=== PATIENT | female | born 1935 | race Caucasian/White ===

== ENCOUNTER → 2016-11-06 | Outpatient (CLI) | payer MEDICARE, BC ==
[~2016-11-06] MED LIST: ANIMAL SHAPES1 EAC2; ASPIRIN EC81 M1; ASPIRIN81 M2 PO; AVAPRO300 M1; AVAPRO300 M1 PO; B6100 MG; CENTRUM PO; CERTAGEN PO; CIPRO PO; CRESTOR PO; DETROL LA PO; EYE VITAMIN OP; EYE VITAMIN-MI1 EACH PO; FENOGLIDE40 MG; FISH OIL 1,2001 EAC2 PO; FISH OIL300 MG; HCTZ; HYDROCODONE-APAP PO; IBUPROFEN800 MG PO; KEFLEX500 MG PO; LASIX20 MG PO; LEVOTHROID75 MCG PO; LEVOTHYROXINE75 MC1; LEVOTHYROXINE75 MCG PO; LIPITOR; LIPITOR20 MG PO; LISINOPRIL-HCTZ1 T16 PO; MIRAPEX1 MG PO; MULTI VITAMIN1 EACH PO; MULTI-DAY VITAM1 TAB PO; NEURONTIN; NORCO1 TAB 10/3 PO; NORVASC PO; OCUVITE TABLET1 TAB PO; OMEPRAZOLE20 M2; OMEPRAZOLE40 M1 PO; PANTOPRAZOLE SO40 MG PO; PATIENT'S PHARMACY; PERCOCET 5/321 UDTAB PO; PREMARIN PO; PREMARIN0.625 MG PO; PROTONIX PO; REGLAN PO; SIMVASTATIN40 MG PO; SYNTHROID PO; TIZANIDINE HCL4 M1 PO; TRAMADOL HCL50 M1 PO; TRAMADOL HCL50 M2 PO; TRICOR PO; TRIGLIDE160 M1 PO; VICODIN PO; ZANAFLEX4 M1 PO; ZESTORETIC 20/21 TAB PO; [UNRECOGNIZED DRUG - OTHER]
[2016-11-06 09:57] LABS: URINE APPEARANCE CLOUDY; URINE BILIRUBIN NEG (NEG); URINE BLOOD NEG (NEG); URINE COLOR YELLOW; URINE GLUCOSE NEG (NEG); URINE KETONE NEG (NEG); URINE LEUKOCYTE ESTERASE 1+ (NEG); URINE NITRATE NEG (NEG); URINE PH 5.5 (5-8); URINE PROTEIN NEG (NEG); URINE SPECIFIC GRAVITY 1.026 (1.003-1.035); URINE UROBILINOGEN 0.2 MG/DL (NEG)
[2016-11-06 10:01] LABS: CULTURE INDICATED? YES; URINE BACTERIA AUWI NEG (NEGATIVE); URINE SQUAMOUS EPITHELIAL CELL MOD /[HPF]
[2016-11-06 10:02] LABS: HEMATOCRIT 38.1 % (35.0-45.0); HEMOGLOBIN 12.5 gm/dL (12.0-16.0); MEAN CELL VOLUME 87.9 FL (83-96); MEAN CORPUSCULAR HEMOGLOBIN 28.9 PG (28-34); MEAN CORPUSCULAR HGB CONC 32.8 g/dL (30-36); MEAN PLATELET VOLUME 7.9 FL (6.5-11.5); RED BLOOD COUNT 4.33 X10e (3.90-5.30); RED CELL DISTRIBUTION WIDTH 14.8 % (11.0-15.5); WHITE BLOOD COUNT 4.9 X10e3 (4.0-10.5)
[2016-11-06 10:28] LABS: BUN/CREATININE RATIO 36.66; CALCIUM SERUM 9.2 mg/dL (8.4-10.2); CREATININE SERUM 0.6 mg/dL (0.6-1.4); GLOM FILT RATE Estimated 86.7 mL/min (>60); POTASSIUM 4.3 mmol/L (3.5-5.1)
[2016-11-06 10:35] LABS: URINE SOURCE CLEAN CATCH
[2016-11-06 10:38] LABS: URBCS1 AUWI 0-2 /[HPF] (0-2)
[2016-11-06 10:39] LABS: U HYALINE CASTS AUWI 0-2 /[LPF]; URINE MUCUS PRESENT
[2016-11-06 10:40] LABS: URINE YEAST PRESENT
== END | disposition home or self-care (01) ==
LOC: CAMB 09:24
PROVIDERS: Orthopaedic Surgery
DX: Z01.812 Encounter for preprocedural laboratory examination (principal); T81.89XA Other complications of procedures, not elsewhere classified, initial encounter
CPT/HCPCS: 36415; 80048; 81003; 85027; 87070; 87086

== ENCOUNTER → 2016-11-08 | Outpatient (CLI) | payer MEDICARE, BC ==
--- NOTE | ~2016-11-08 | MY29 ---
[facility] A Service of [facility] RADIOLOGY TEXT RESULTS PATIENT: NIDA MATHUR LOCATION: [facility] : 37 UNIT #: [id number] AGE: [address]: Nik Alexander MD SEX: F ORDER DR: [id number] [facility] [address] [place], [place] [address] [id number] O MR#: [id number] Acc #: [id number] NAME: NIDA MATHUR : 1935 SEX: F STUDY DATE/TIME: 11/08/2016 10:44 UNIT: [facility] ROOM: STUDY DESCRIPTION: MY LUIS SCREENING W/ CAD BILAT Attending Physician: Nik Alexander M.D. Referring Physician: Nik Alexander M.D. Ordering Physician: Nik Alexander M.D. Primary Care Physician: Nik Alexander M.D. MEDICAL IMAGING REPORT This report is preliminary unless electronic signature is present EXAM Bilateral digital screening mammogram with CAD 11/08/2016. INDICATIONS 81-year-old female for routine screening. No reported problems and no personal or family history of breast cancer. History of benign biopsy on the right. TECHNIQUE CC and MLO views of the breasts were obtained and reviewed with an FDA-approved CAD device COMPARISON 11/04/2015, 10/11/2014, 04/29/2012. FINDINGS Scar marker present on the right. Breast parenchyma is composed of scattered fibroglandular densities. Extensive secretory type calcifications present bilaterally. There is no new dominant nodule or mass in either breast. No new suspicious cluster of microcalcifications. IMPRESSION Benign screening mammogram; 1-year follow-up recommended. Patients over the age of 40 are entered into a reminder system with target due date for the next mammogram. A result letter will also be sent to the patient. BIRADS: 2 Benign finding. Dictated by... Eduardo Mann M.D. [facility] A Service of [facility] RADIOLOGY TEXT RESULTS PATIENT: NIDA MATHUR LOCATION: [facility] : 37 UNIT #: [id number] AGE: [address]: Nik Alexander MD SEX: F ORDER DR: THIS IS AN ELECTRONICALLY VERIFIED REPORT Eduardo Mann M.D. at 11/08/2016 5:24 PM Rylan TD: 11/08/2016 15:00 JOB #: [id number] MEDICAL IMAGING REPORT Page 1 of 1 COPY
== END | disposition home or self-care (01) ==
LOC: CWCC 10:21
DX: Z12.31 Encounter for screening mammogram for malignant neoplasm of breast (principal); Z91.89 Other specified personal risk factors, not elsewhere classified; Z98.890 Other specified postprocedural states
CPT/HCPCS: G0202

== ENCOUNTER 2016-11-14 05:19 | Inpatient (IN) | payer MEDICARE, BC ==
[~2016-11-14] VITALS: Ht 165.1 cm; Wt 70.0 kg
--- NOTE | ~2016-11-14 | DS ---
Unit #: [id number] #: [id number] Patient: NIDA MATHUR [id number] [address] [place], [place] [address] [id number] I MR#: [id number] NAME: NIDA MATHUR. ROOM: [facility] Age: 81 Sex: F Admission Date: 11/14/2016 : 1935 Discharge Date: 11/15/2016 Attending Physician: Zachariah Ramirez M.D. Primary Care Physician: Nik Alexander M.D. DISCHARGE SUMMARY ADMITTING DIAGNOSIS Failed left shoulder rotator cuff repair. DISCHARGE DIAGNOSIS Failed left shoulder rotator cuff repair, status post left reverse shoulder arthroplasty. SECONDARY DIAGNOSES 1. Cardiomegaly. 2. Lumbar degenerative disk disease. 3. Diverticulitis. 4. Gastroesophageal reflux disease. 5. Hypertension. 6. Hyperlipidemia. 7. Peripheral neuropathy. 8. Restless legs syndrome. PROCEDURE PERFORMED On 11/14/2016, the patient underwent the left reverse shoulder arthroplasty. Please see operative report for further details. BRIEF HISTORY Ms. Mathur is a 81-year-old female who was referred to our office by Dr. Fuentes for her left shoulder. She underwent a previous left rotator cuff repair and now has failed rotator cuff repair with pseudoparalysis. She was experiencing left shoulder pain on a daily basis and has difficulty performing any of her activities of daily living due to limited range of motion of her left shoulder. Dr. Ramirez discussed treatment options with her and recommended a left reverse shoulder arthroplasty. The risks, benefits, and alternatives were discussed with the patient and she elected to proceed with surgery on 11/14/2016. HOSPITAL COURSE The patient was transferred to the orthopedic unit after surgery for postoperative care. The patient remained stable on the day of surgery. Postoperative films of her left shoulder demonstrated she was status post left reverse shoulder arthroplasty, however, remained in correct anatomic alignment with no evidence of loosening or migration. On postoperative day #1, the patient remained stable. She was afebrile and her vital signs were stable. She is awake, alert, and oriented x3 and in no acute distress. Her left upper extremity incision was clean, dry, and intact with no surrounding erythema, warmth, or hematoma. She was Unit #: [id number] #: [id number] Patient: NIDA MATHUR neurovascularly intact in the median, ulnar, and radial nerves. She has normal sensation to light touch in all 5 digits. Her white blood cell count was 7.8 and hemoglobin was 11.3. She was placed on aspirin and an SCD for DVT prophylaxis. We will recommend physical therapy on pendulums as well as range of motion of the elbow, wrist, and hand. She remained nonweightbearing of left upper extremity and her sling with the exception of 2 to 3 times a day when she will perform her hand exercises. Her left shoulder dressing was changed in the room today. CONDITION ON DISCHARGE Stable. DISPOSITION The patient will be discharged home where she has her and all other family members to help with postoperative care. DISCHARGE MEDICATIONS 1. Mirapex 1 mg p.o. twice daily. 2. Lasix 20 mg p.o. every morning. 3. Lipitor 40 mg p.o. nightly. 4. Avapro 300 mg p.o. every morning. 5. Multivitamin 1 tablet p.o. daily. 6. Aspirin 81 mg p.o. daily. 7. Eye vitamin and mineral tablet 2 tablets p.o. daily. 8. Omeprazole 40 mg p.o. b.i.d. 9. Tizanidine 4 mg p.o. t.i.d. 10. Synthroid 75 mcg p.o. every morning. 11. Percocet 5/325 mg 1-2 tablets p.o. q.4 h. p.r.n. The patient was given prescription for Percocet on discharge to dispense 65 tablets. DISCHARGE INSTRUCTIONS The patient will be discharged home today. She will follow up with Dr. Ramirez in 2 weeks' time. She will remain nonweightbearing of the left upper extremity and in her sling. She may remove her sling 2-3 times a day to perform pendulums and range of motion of the elbow, wrist, and hand. She will perform daily dressing changes to the left upper extremity incision. She may shower, but she is not to get her incision wet. Dictated by... Meghan Gandhi APRN for Shankar Mills/martínez TD: 11/19/2016 11:01 JOB #: [id number] DISCHARGE SUMMARY Page 1 of 1 X MEGHAN GANDHI APRN DISCHARGE SUMMARY
--- NOTE | ~2016-11-14 | OR ---
Unit #: [id number] #: [id number] Patient: NIDA MATHUR [id number] [address] [address] [id number] I MR#: [id number] NAME: NIDA MATHUR. ROOM: [facility] Date of Procedure: 11/14/2016 Admission Date: 11/14/2016 Surgeon: Zachariah Ramirez M.D. : 1935 Attending Physician: Zachariah Ramirez M.D. Primary Care Physician: Nik Alexander M.D. OPERATIVE REPORT PREOPERATIVE DIAGNOSIS Failed left rotator cuff repair. POSTOPERATIVE DIAGNOSIS Failed left rotator cuff repair PROCEDURES PERFORMED 1. Left reverse shoulder arthroplasty. 2. Left shoulder biceps tenodesis. 3. Hardware removal, left shoulder. [employer] Melissa Arias APRN, ENTRY LEVEL MANAGEMENT. ANESTHESIA General with interscalene nerve block. IMPLANTS 1. DJO Surgical size 10 press-fit AltiVate stem with a 32 neutral humeral socket liner. 2. DJO Surgical P2 baseplate with a 32, -4 Glenosphere. ESTIMATED BLOOD LOSS 100 mL. COMPLICATIONS None apparent. SPECIMENS Humeral head to Pathology. DRAINS None. INDICATIONS FOR PROCEDURE Ms. 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 She is 81 years old. We discussed revision repair versus superior capsular reconstruction versus reverse shoulder arthroplasty. She was referred to our office in anticipation of a reverse shoulder arthroplasty. Following our discussion of surgical treatment options, she elected to proceed with a reverse shoulder replacement. Risks, benefits, and alternatives were reviewed and she Unit #: [id number] #: [id number] Patient: NIDA MATHUR elected to proceed. DESCRIPTION OF PROCEDURE The patient was identified in the preoperative holding area. The operative site was marked. Preoperative antibiotics were administered. A regional block was performed. The patient was brought to the operating room and placed supine on the operating table. A general anesthetic was induced. The patient was then positioned in the beach-chair position. The left upper extremity was prepped and draped in a sterile fashion. An incision was made over the anterior aspect of the shoulder. Dissection was carried down to the deltopectoral interval. The cephalic vein was identified and retracted medially with the pectoralis major muscle. The subdeltoid space was developed. Adhesions were removed to the subdeltoid fascia. Then, rotator cuff was inspected. There was a large full-thickness tear of the entirety of the supraspinatus and extending back into the infraspinatus. The subscapularis was intact. The tendon sheath in the long head of the biceps was opened. Within the sheath itself, there was noted to be proliferative tenosynovium. A biceps tenodesis was then performed to the superior border of the pectoralis major tendon with #2 FiberWire suture. The proximal biceps was then excised. The remnant of the anterior supraspinatus was then removed. The subscapularis was taken down in a direct subscapularis peel. The shoulder was then dislocated anteriorly. The articular cartilage was largely healthy in appearance. There were multiple sutures and suture anchors noted. These were removed. The extramedullary cutting guide was attached. A humeral head osteotomy was performed in 30 degrees of retroversion. The shoulder was then dislocated posteriorly and attention turned to glenoid exposure. We had easy glenoid exposure in this individual. The labrum was removed circumferentially. The central drill hole was drilled to desired depth. The reaming tap was inserted and achieved good purchase. We then reamed with a starter and small reamers to the desired depth. We then inserted the real baseplate, which achieved excellent purchase. We placed 4 peripheral locking screws. We then placed the real 32, -4 Glenosphere, followed by the setscrew. Attention was turned back to the humerus. The humerus was reamed with a freehand ball reaming technique. Any remaining suture anchors were removed. We removed numerous PEEK suture anchors from the humerus. We then reamed up to a size 10 reamer. The real implant was opened. Three drill holes were placed in the bicipital groove. FiberTape sutures were passed for suture passage. The real implant was inserted with the sutures looped around the stem. We then trialed and selecting a 32 neutral humeral socket liner. The real liner was opened and inserted. The shoulder was reduced. The sutures were passed through the subscapularis and subscapularis was repaired with 3 FiberTape sutures. The wound was then irrigated and closed in a layered fashion. A drain was not required. The wound was closed with 0 Vicryl, 2-0 Vicryl, and running Monocryl in the skin. Steri-Strips and sterile dressings were applied. The patient was placed in a shoulder immobilizer. DISPOSITION Stable to the recovery room. Dictated by... Unit #: [id number] #: [id number] Patient: NIDA MATHUR Shankar Mills/martínez TD: 11/15/2016 05:52 JOB #: [id number] OPERATIVE REPORT Page 1 of 1 X Zachariah Ramirez MD X PROCEDURE OPERATIVE NOTE
--- NOTE | ~2016-11-14 | CR229 ---
[facility] A Service of [facility] RADIOLOGY TEXT RESULTS PATIENT: NIDA MATHUR LOCATION: B 451-01 : 37 UNIT #: [id number] AGE: [address]: Zachariah Ramirez MD SEX: F ORDER DR: [id number] [facility] [address] [place], [place] [address] [id number] MR#: [id number] Acc #: [id number] NAME: NIDA MATHUR : 1935 SEX: F STUDY DATE/TIME: 11/14/2016 10:14 UNIT: [facility] ROOM: [facility] STUDY DESCRIPTION: CR Shoulder Min 2 View Lt Attending Physician: Zachariah Ramirez M.D. Ordering Physician: Zachariah Ramirez M.D. Primary Care Physician: Nik Alexander M.D. MEDICAL IMAGING REPORT This report is preliminary unless electronic signature is present EXAM Left shoulder 11/14 INDICATIONS Status post shoulder replacement today. Shoulder pain. FINDINGS 2 views of the left shoulder COMPARISON 12/07/2015 FINDINGS There has been interval shoulder arthroplasty. Hardware appears well-aligned. No complications are seen. IMPRESSION Satisfactory appearance of a new left shoulder arthroplasty. Dictated by... Master Garcia Jr., M.D. THIS IS AN ELECTRONICALLY VERIFIED REPORT Master Garcia Jr., M.D. at 11/15/2016 8:29 AM RLK/prasanna TD: 11/14/2016 18:47 JOB #: [id number] MEDICAL IMAGING REPORT Page 1 of 1 COPY
[~2016-11-14 05:19] MED LIST changes: -ASPIRIN81 M2 PO; -AVAPRO300 M1 PO; -EYE VITAMIN-MI1 EACH PO; -FISH OIL 1,2001 EAC2 PO; -IBUPROFEN800 MG PO; -LASIX20 MG PO; -LEVOTHYROXINE75 MCG PO; -LIPITOR20 MG PO; -MIRAPEX1 MG PO; -MULTI VITAMIN1 EACH PO; -OMEPRAZOLE40 M1 PO; -PERCOCET 5/321 UDTAB PO; -TIZANIDINE HCL4 M1 PO; -TRAMADOL HCL50 M1 PO
[2016-11-14 06:37] LABS: URINE APPEARANCE CLOUDY; URINE BILIRUBIN NEG (NEG); URINE BLOOD NEG (NEG); URINE COLOR DK YELLOW; URINE GLUCOSE NEG (NEG); URINE KETONE TRACE (NEG); URINE LEUKOCYTE ESTERASE 1+ (NEG); URINE NITRATE NEG (NEG); URINE PH 5.5 (5-8); URINE PROTEIN NEG (NEG)
[2016-11-14 06:39] LABS: URBCS1 AUWI 0-2 /[HPF] (0-2); URINE BACTERIA AUWI NEG (NEGATIVE); URINE SQUAMOUS EPITHELIAL CELL MANY /[HPF]
[2016-11-14 07:04] LABS: URINE MUCUS PRESENT
[2016-11-14] MEDS ORDERED: TIZANIDINE HCL4 M1 PO (10:00)
[2016-11-14] MEDS ORDERED: OMEPRAZOLE40 M1 PO (10:01)
[2016-11-14] MEDS ORDERED: AVAPRO300 M1 PO (10:01)
[2016-11-14] MEDS ORDERED: LASIX20 MG PO (10:02)
[2016-11-14] MEDS ORDERED: LIPITOR20 MG PO (10:06)
[2016-11-14] MEDS ORDERED: LEVOTHYROXINE75 MCG PO (10:06)
[2016-11-14] MEDS ORDERED: TRAMADOL HCL50 M1 PO (10:07)
[2016-11-14] MEDS ORDERED: MIRAPEX1 MG PO (10:08)
[2016-11-14] MEDS ORDERED: ASPIRIN81 M2 PO (10:09)
[2016-11-14] MEDS ORDERED: FISH OIL 1,2001 EAC2 PO (10:09)
[2016-11-14] MEDS ORDERED: IBUPROFEN800 MG PO (10:09)
[2016-11-14] MEDS ORDERED: MULTI VITAMIN1 EACH PO (10:09)
[2016-11-14] MEDS ORDERED: EYE VITAMIN-MI1 EACH PO (10:11)
[2016-11-15 03:05] LABS: HEMATOCRIT 34.2 % (35.0-45.0); HEMOGLOBIN 11.3 gm/dL (12.0-16.0); MEAN CELL VOLUME 87.6 FL (83-96); MEAN CORPUSCULAR HGB CONC 33.1 g/dL (30-36); RED BLOOD COUNT 3.9 X10e (3.90-5.30); WHITE BLOOD COUNT 7.8 X10e3 (4.0-10.5)
[2016-11-15] MEDS ORDERED: PERCOCET 5/321 UDTAB PO (08:52)
== END 2016-11-15 11:40 | disposition home or self-care (01) | DRG 483 ==
LOC: CSUR 05:19 → CPACUOF 07:00 → CSUR 07:30 → CPACUOF 09:53 → C4B 09:53 → CPACUOF 11:28 → C4B 11:28
PROVIDERS: Orthopaedic Surgery
PROC: 0RRK00Z Replacement of Left Shoulder Joint with Reverse Ball and Socket Synthetic Substitute, Open Approach (ICD-10-PCS; principal; 2016-11-14 07:30)
DX: M25.512 Pain in left shoulder (principal); K57.92 Diverticulitis of intestine, part unspecified, without perforation or abscess without bleeding; G62.9 Polyneuropathy, unspecified; Z98.890 Other specified postprocedural states; I10 Essential (primary) hypertension; R29.818 Other symptoms and signs involving the nervous system; I51.7 Cardiomegaly; M51.36 Other intervertebral disc degeneration, lumbar region; K21.9 Gastro-esophageal reflux disease without esophagitis; E78.5 Hyperlipidemia, unspecified; G25.81 Restless legs syndrome; Z90.49 Acquired absence of other specified parts of digestive tract; Z90.710 Acquired absence of both cervix and uterus; Z88.5 Allergy status to narcotic agent; Z87.891 Personal history of nicotine dependence
CPT/HCPCS: 73030; 81003; 85027; 94010; 94760; 97110; 97116; 97161; C1713; C1776; G8978-GP; G8979-GP; G8980-GP; J0131; J0330; J0690; J0735; J2370; J2405; J2710; J2795; J3010